=== PATIENT | female | born 1985 | race Caucasian/White ===

== ENCOUNTER → 2018-03-17 | Outpatient (CLI) | payer BC, OTHER ==
[~2018-03-17] VITALS: Ht 160 cm; Wt 84.5 kg
[~2018-03-17] MED LIST: ALDOMET500 MG PO; ASPIR 8181 M1 PO; BUSPAR5 MG PO; COZAAR25 MG PO; CYMBALTA20 MG PO; CYMBALTA60 MG PO; JUNEL FE 1.5-31 EACH PO; METFORMIN HCL1000 MG PO; PRENATAL TABLE1 EAC3 PO; ZANTAC150 MG PO; ZOLOFT50 MG PO
[2018-03-17 15:34] VITALS: BP 192/114
== END | disposition home or self-care (01) ==
LOC: IVINF 14:30
DX: Z34.83 Encounter for supervision of other normal pregnancy, third trimester (principal); Z31.82 Encounter for Rh incompatibility status; Z3A.28 28 weeks gestation of pregnancy; Z67.91 Unspecified blood type, Rh negative
CPT/HCPCS: 96372

== ENCOUNTER 2018-03-27 14:55 | Outpatient (CLI) | payer BC, OTHER ==
[2018-03-27 15:19] VITALS: BP 130/78
[2018-03-27 16:50] LABS: BASOPHIL (%) 0.6 % (0-1); BASOPHIL COUNT 0.1 K/uL (0-0.1); EOSINOPHIL COUNT 0.2 K/uL (0-0.3); HEMATOCRIT 27.8 % (36.0-46.0); HEMOGLOBIN 8.9 G/DL (11.9-15.5); IMMATURE GRANULOCYTE (%) 0.3 % (0.0-0.7); LYMPHOCYTE (%) 30.9 % (15-42); LYMPHOCYTE COUNT 2.7 K/uL (1.0-2.8); MCV 71.8 FL (83-99); MONOCYTE (%) 7.9 % (3-12); MONOCYTE COUNT 0.7 K/uL (0-0.8); NEUTROPHIL (%) 58.3 % (45-76); PLATELET COUNT 215 K/uL (156-360); RBC DIS.WIDTH-CV 13.2 % (11.8-14.6); RBC DIS.WIDTH-SD 34.2 % (39-53); RED BLOOD COUNT 3.87 M/uL (3.80-5.20); WHITE BLOOD COUNT 8.6 K/uL (4.1-10.2)
[2018-03-27 16:53] VITALS: BP 139/78
[2018-03-27 17:15] LABS: ALBUMIN 2.8 G/DL (3.2-4.8); ALKALINE PHOSPHATASE 96 IU/L (3-129); ALT (GPT) 5 IU/L (3-49); AST (GOT) 11 IU/L (2-34); CHLORIDE 103 MEQ/L (99-109); CREATININE 0.6 MG/DL (0.6-1.3); GFR ESTIMATE (CALCULATED) > 59 mL/min/; GLUCOSE 123 mg/dL (70-99); LACTATE DEHYDROGENASE 137 IU/L (20-246); POTASSIUM 3.6 MEQ/L (3.7-5.4); SODIUM 133 MEQ/L (136-147); TOTAL BILIRUBIN 0.3 MG/DL (0.0-1.0); TOTAL PROTEIN 5.4 G/DL (6.4-8.3); UREA NITROGEN (BUN) 10 mg/dL (9-23); URIC ACID 4.9 mg/dL (3.1-9.2)
[2018-03-27 19:10] VITALS: BP 145/79
[2018-03-27 21:39] VITALS: BP 172/79
[2018-03-27 21:40] VITALS: BP 158/79
== END 2018-03-27 22:35 | disposition home or self-care (01) ==
LOC: LDRP-OP 14:55 → 2WEST 14:56
PROVIDERS: Advanced Practice Midwife
DX: O76 Abnormality in fetal heart rate and rhythm complicating labor and delivery (principal); Z3A.32 32 weeks gestation of pregnancy; O36.8130 Decreased fetal movements, third trimester, not applicable or unspecified; O99.843 Bariatric surgery status complicating pregnancy, third trimester; O99.013 Anemia complicating pregnancy, third trimester; D64.9 Anemia, unspecified; O99.343 Other mental disorders complicating pregnancy, third trimester; F32.9 Major depressive disorder, single episode, unspecified; F41.9 Anxiety disorder, unspecified; Z85.42 Personal history of malignant neoplasm of other parts of uterus; O99.333 Smoking (tobacco) complicating pregnancy, third trimester; F17.200 Nicotine dependence, unspecified, uncomplicated; O16.3 Unspecified maternal hypertension, third trimester
CPT/HCPCS: 59025; 80053; 82570; 83615; 84156; 84550; 85025; G0378

== ENCOUNTER 2018-03-29 08:43 | Outpatient (CLI) | payer BC, OTHER ==
[2018-03-29] VITALS (24 sets, daily range): BP systolic 141–199; BP diastolic 71–119
[~2018-03-29] VITALS: Ht 160 cm; Wt 85.0 kg
[2018-03-29 10:01] LABS: HEMATOCRIT 28.4 % (36.0-46.0); HEMOGLOBIN 9.2 G/DL (11.9-15.5); MCH 23.1 PG (29.0-34.0); MCHC 32.4 G/DL (30.0-36.0); MCV 71.2 FL (83-99); PLATELET COUNT 222 K/uL (156-360); RBC DIS.WIDTH-CV 13.4 % (11.8-14.6); RBC DIS.WIDTH-SD 34.4 % (39-53); RED BLOOD COUNT 3.99 M/uL (3.80-5.20); WHITE BLOOD COUNT 7.4 K/uL (4.1-10.2)
[2018-03-29] MEDS ORDERED: NIFEDIPINE ER30 MG PO (10:02)
[2018-03-29 10:25] LABS: INTER. NORMALIZED RATIO 0.9
[2018-03-29 10:26] LABS: FIBRINOGEN 424 mg/dL (150-450)
[2018-03-29 10:33] LABS: ALBUMIN 2.9 G/DL (3.2-4.8); ALKALINE PHOSPHATASE 102 IU/L (3-129); ALT (GPT) 5 IU/L (3-49); AST (GOT) 12 IU/L (2-34); CHLORIDE 106 MEQ/L (99-109); CREATININE 0.7 MG/DL (0.6-1.3); GFR ESTIMATE (CALCULATED) > 59 mL/min/; LACTATE DEHYDROGENASE 142 IU/L (20-246); POTASSIUM 4.2 MEQ/L (3.7-5.4); SODIUM 135 MEQ/L (136-147); TOTAL PROTEIN 5.5 G/DL (6.4-8.3); UREA NITROGEN (BUN) 10 mg/dL (9-23)
[2018-03-29 10:37] LABS: GLUCOSE 72 mg/dL (70-99); TOTAL BILIRUBIN 0.4 MG/DL (0.0-1.0)
[2018-03-29 14:06] LABS: UR CREATININE CONCENTRATION 45.3 MG/DL
[2018-03-29] MEDS ORDERED: LABETALOL HCL200 MG PO (15:29)
== END 2018-03-29 16:23 | disposition home or self-care (01) ==
LOC: LDRP-OP 08:43 → 2WEST 08:44 → LDRP-OP 12:40 → 2WEST 16:23 → LDRP-OP 06-16 22:59
PROVIDERS: Advanced Practice Midwife
DX: O10.913 Unspecified pre-existing hypertension complicating pregnancy, third trimester (principal); Z3A.33 33 weeks gestation of pregnancy
CPT/HCPCS: 59025; 80053; 82570; 83615; 84156; 85027; 85384; 85610; G0378